=== PATIENT | male | born 1960 | race African-American/Black ===

== ENCOUNTER 2016-07-12 10:42 | Inpatient (IN) | payer MEDICAID ==
[~2016-07-12] VITALS: Ht 185.4 cm; Wt 111.7 kg
[2016-07-12] VITALS (7 sets, daily range): BP systolic 118–136; BP diastolic 54–79
[2016-07-12] MEDS ORDERED: HALOPERIDOL 5 MG TABLET PO PRN (12:30)
[2016-07-12] MEDS ORDERED: ZOLPIDEM TARTRATE 10 MG TABLET PO PRN (12:30)
[2016-07-12] MEDS ORDERED: LORazepam 2 MG TABLET PO PRN ×2 (12:30→19:15)
[2016-07-12 12:59] LABS: BASOPHILS % (AUTO) 0.3 % (0.0-2.0); EOSINOPHILS % (AUTO) 4.9 % (1.0-6.0); HEMATOCRIT 37.5 % (41-53); HEMOGLOBIN 12.4 g/dL (13.5-17.5); LYMPHOCYTES # (AUTO) 0.8 K/uL (1.0-4.8); LYMPHOCYTES % (AUTO) 19.3 % (22.0-44.0); MEAN CORPUSCULAR HEMOGLOBIN 31.6 pg (26.0-34.0); MEAN CORPUSCULAR HGB CONC 32.9 G/dL (31.0-37.0); MEAN CORPUSCULAR VOLUME 96 fL (80-100); MONOCYTES # (AUTO) 0.4 K/uL (0.1-1.0); MONOCYTES % (AUTO) 8.1 % (2.0-9.0); NEUTROPHILS # (AUTO) 2.9 K/uL (1.8-7.7); NEUTROPHILS % (AUTO) 67.4 % (40.0-70.0); PLATELET COUNT (AUTO) 128 K/uL (150-450); RED BLOOD CELL COUNT(AUTO) 3.91 MIL/uL (4.50-5.90); RED CELL DISTRIBUTION WIDTH 13.6 % (11.5-14.5); WHITE BLOOD COUNT (AUTO) 4.3 K/uL (4.5-11.0)
[2016-07-12 13:19] LABS: ANION GAP 7 mmol/L (8-16); CALCIUM, TOTAL 8.2 mg/dL (8.8-10.5); CARBON DIOXIDE 30 mmol/L (22-29); CHLORIDE 103 mmol/L (98-107); CREATININE 0.78 mg/dL (0.60-1.30); GLOMERULAR FILTR. RATE CALC > 60 mL/min (>60); POTASSIUM 3.5 mmol/L (3.5-5.1); SODIUM SERUM 140 mmol/L (136-145); UREA NITROGEN, BLOOD 11 mg/dL (7-18)
[2016-07-12 13:24] LABS: ALANINE AMINOTRANSFERASE 63 U/L (12-78); ALBUMIN 3.1 g/dL (3.4-5.0); ASPARTATE AMINOTRANSFERASE 107 U/L (15-37); BILIRUBIN,TOTAL 0.8 mg/dL (0.1-1.0); TOTAL PROTEIN, SERUM 6.8 g/dL (6.4-8.2)
[2016-07-12] MEDS ORDERED: INFLUENZA VIRUS VACCINE QVS 2016-17 (3YR+)/PF 60 MCG/0.5 ML SYRINGE IM ONE (13:45)
[2016-07-12] MEDS ORDERED: ASPIRIN 81 MG CHEWABLE TABLET PO ONE (15:15)
[2016-07-12] MEDS ORDERED: CYANOCOBALAMIN 1,000 MCG/ML VIAL IM ONE (19:15)
[2016-07-12] MEDS ORDERED: HydrOXYzine PAMOATE 50 MG CAPSULE PO PRN (19:15)
[2016-07-12] MEDS ORDERED: GuaiFENesin/D-METHORPHAN [SUGAR-FREE] 200-20MG/10 ML SYRUP UDCUP PO PRN (19:15)
[2016-07-12] MEDS ORDERED: LOPERAMIDE HCL 2 MG CAPSULE PO PRN (19:15)
[2016-07-12] MEDS: THIAMINE HCL 100 MG TABLET PO SCH (20:32)
[2016-07-12] MEDS: MULTIVITAMINS WITH MINERALS, THERAPEUTIC TABLET PO SCH (20:32)
[2016-07-12] MEDS: FOLIC ACID 1 MG TABLET PO SCH (20:35)
[2016-07-12] MEDS ORDERED: ACETAMINOPHEN 325 MG TABLET PO PRN (22:00)
[2016-07-13] VITALS (8 sets, daily range): BP systolic 107–141; BP diastolic 67–85
[2016-07-13] MEDS ORDERED: LORazepam 2 MG TABLET PO PRN (07:00)
[2016-07-13] MEDS: MULTIVITAMINS WITH MINERALS, THERAPEUTIC TABLET PO SCH (08:30)
[2016-07-13] MEDS: MAGNESIUM OXIDE 400 MG TABLET PO SCH (08:30)
[2016-07-13] MEDS: FOLIC ACID 1 MG TABLET PO SCH (08:30)
[2016-07-13] MEDS: ASPIRIN 81 MG CHEWABLE TABLET PO SCH (08:30)
[2016-07-13] MEDS: RisperiDONE 0.5 MG TABLET PO SCH ×2 (08:30→16:10)
[2016-07-13] MEDS: THIAMINE HCL 100 MG TABLET PO SCH ×2 (08:30→16:10)
[2016-07-13] MEDS: LORazepam 2 MG TABLET PO SCH ×4 (08:30→20:37)
[2016-07-13 09:41] LABS: INR 1.1 (0.9-1.1); PROTHROMBIN TIME 11.4 SEC (9.4-11.6)
[2016-07-13] MEDS ORDERED: POTASSIUM CHLORIDE 20 MEQ ER TABLET PO ONE (10:45)
[2016-07-13] MEDS: HYDROCHLOROTHIAZIDE 25 MG TABLET PO SCH (12:09)
[2016-07-13 14:37] LABS: HEMOGLOBIN A1C 5.5 % (4.5-6.2)
[2016-07-13 14:39] LABS: CHOL/HDL RATIO 1.3 (4.2-7.3)
[2016-07-14 00:04] VITALS: BP 103/60
[2016-07-14 03:00] VITALS: BP 135/77
[2016-07-14 05:42] VITALS: BP 133/71
[2016-07-14 08:04] VITALS: BP 133/85
[2016-07-14 08:05] VITALS: BP 133/85
[2016-07-14] MEDS: FOLIC ACID 1 MG TABLET PO SCH (08:24)
[2016-07-14] MEDS: THIAMINE HCL 100 MG TABLET PO SCH ×2 (08:24→16:47)
[2016-07-14] MEDS: MULTIVITAMINS WITH MINERALS, THERAPEUTIC TABLET PO SCH (08:24)
[2016-07-14] MEDS: MAGNESIUM OXIDE 400 MG TABLET PO SCH (08:24)
[2016-07-14] MEDS: RisperiDONE 0.5 MG TABLET PO SCH ×2 (08:24→16:47)
[2016-07-14] MEDS: LORazepam 2 MG TABLET PO SCH ×4 (08:24→20:36)
[2016-07-14] MEDS: HYDROCHLOROTHIAZIDE 25 MG TABLET PO SCH (08:24)
[2016-07-14] MEDS: ASPIRIN 81 MG CHEWABLE TABLET PO SCH (08:25)
[2016-07-14 16:00] VITALS: BP 138/91
[2016-07-15 00:10] VITALS: BP 117/62
[2016-07-15] MEDS ORDERED: LORazepam 1 MG TABLET PO PRN (07:00)
[2016-07-15 08:34] VITALS: BP 145/88
[2016-07-15] MEDS: THIAMINE HCL 100 MG TABLET PO SCH ×2 (08:34→16:46)
[2016-07-15] MEDS: HYDROCHLOROTHIAZIDE 25 MG TABLET PO SCH (08:34)
[2016-07-15] MEDS: RisperiDONE 0.5 MG TABLET PO SCH ×2 (08:34→16:46)
[2016-07-15] MEDS: FOLIC ACID 1 MG TABLET PO SCH (08:35)
[2016-07-15] MEDS: ASPIRIN 81 MG CHEWABLE TABLET PO SCH (08:35)
[2016-07-15] MEDS: LORazepam 1 MG TABLET PO SCH ×4 (08:35→21:24)
[2016-07-15] MEDS: MULTIVITAMINS WITH MINERALS, THERAPEUTIC TABLET PO SCH (08:35)
[2016-07-15] MEDS: MAGNESIUM OXIDE 400 MG TABLET PO SCH (08:35)
[2016-07-15 08:36] VITALS: BP 145/88
[2016-07-15 16:17] VITALS: BP 142/89
[2016-07-15 19:49] VITALS: BP 138/84
[2016-07-15 19:50] VITALS: BP 138/84
[2016-07-16 01:07] VITALS: BP 113/71
[2016-07-16] MEDS ORDERED: LORazepam 1 MG TABLET PO PRN (07:00)
[2016-07-16] MEDS: ASPIRIN 81 MG CHEWABLE TABLET PO SCH (08:31)
[2016-07-16] MEDS: FOLIC ACID 1 MG TABLET PO SCH (08:31)
[2016-07-16] MEDS: MAGNESIUM OXIDE 400 MG TABLET PO SCH (08:31)
[2016-07-16] MEDS: HYDROCHLOROTHIAZIDE 25 MG TABLET PO SCH (08:31)
[2016-07-16] MEDS: RisperiDONE 0.5 MG TABLET PO SCH ×2 (08:32→16:12)
[2016-07-16] MEDS: THIAMINE HCL 100 MG TABLET PO SCH ×2 (08:33→16:12)
[2016-07-16] MEDS: MULTIVITAMINS WITH MINERALS, THERAPEUTIC TABLET PO SCH (08:33)
[2016-07-16 09:00] VITALS: BP 133/83
[2016-07-16 10:58] VITALS: BP 133/83
[2016-07-16 16:00] VITALS: BP 131/79
[2016-07-16 16:09] VITALS: BP 131/79
[2016-07-17 00:04] VITALS: BP 105/62
[2016-07-17] MEDS: ASPIRIN 81 MG CHEWABLE TABLET PO SCH (08:51)
[2016-07-17] MEDS: RisperiDONE 0.5 MG TABLET PO SCH (08:51)
[2016-07-17] MEDS: HYDROCHLOROTHIAZIDE 25 MG TABLET PO SCH (08:51)
[2016-07-17] MEDS: THIAMINE HCL 100 MG TABLET PO SCH (08:51)
[2016-07-17] MEDS: MAGNESIUM OXIDE 400 MG TABLET PO SCH (08:51)
[2016-07-17] MEDS: FOLIC ACID 1 MG TABLET PO SCH (08:51)
[2016-07-17] MEDS: MULTIVITAMINS WITH MINERALS, THERAPEUTIC TABLET PO SCH (08:51)
[2016-07-17 08:56] VITALS: BP 123/78
[2016-07-17] MEDS ORDERED: RISP.5 PO (13:56)
[2016-07-17] MEDS ORDERED: HYDR25TA PO (13:56)
[2016-07-17] MEDS ORDERED: ASPI81 PO (13:56)
== END 2016-07-17 15:20 | disposition home or self-care (01) | DRG 751 ==
LOC: EMS 12:29 → B2S 15:11
PROVIDERS: ADMIT Psychiatry & Neurology Child & Adolescent Psychiatry; ATTEND Psychiatry & Neurology Child & Adolescent Psychiatry
DX: F29 Unspecified psychosis not due to a substance or known physiological condition (principal); I82.509 Chronic embolism and thrombosis of unspecified deep veins of unspecified lower extremity; F79 Unspecified intellectual disabilities; F25.9 Schizoaffective disorder, unspecified; Z79.52 Long term (current) use of systemic steroids; Z72.89 Other problems related to lifestyle
CPT/HCPCS: 71020; 83036; 84132; 85379; 93971; 99285; G0480; J3420

== ENCOUNTER 2016-09-21 08:45 | Inpatient (IN) | payer MEDICAID ==
[~2016-09-21] VITALS: Ht 185.4 cm; Wt 110.4 kg
[~2016-09-21 08:45] MED LIST: ASPI81 PO; HYDR25TA PO; RISP.5 PO
[2016-09-21 10:24] VITALS: BP 132/82
[2016-09-21 18:30] VITALS: BP 138/82
[2016-09-21] MEDS ORDERED: PNEUMOCOCCAL VACCINE POLYVALENT 0.5 ML VIAL [PPSV23] IM ONE (20:15)
[2016-09-21] MEDS ORDERED: HALOPERIDOL 5 MG TABLET PO PRN (20:15)
[2016-09-21 23:21] LABS: APPEARANCE,URINE TURBID (CLEAR); GLUCOSE, URINE (UA) NEGATIVE (NEGATIVE); KETONES,URINE NEGATIVE (NEGATIVE); LEUKOCYTE ESTERASE ,URINE NEGATIVE (NEGATIVE); OCCULT BLOOD,URINE NEGATIVE (NEGATIVE); PH,URINE 5.5 (5.0-8.0); PROTEIN,URINE NEGATIVE (NEGATIVE)
[2016-09-21 23:30] LABS: ADD UA MICROSCOPIC NO
[2016-09-22 07:07] LABS: INR 1.1 (0.9-1.1); PROTHROMBIN TIME 11.6 SEC (9.4-11.6)
[2016-09-22 07:15] LABS: ALANINE AMINOTRANSFERASE 51 U/L (12-78); ALBUMIN 3.3 g/dL (3.4-5.0); ANION GAP 12 mmol/L (8-16); ASPARTATE AMINOTRANSFERASE 77 U/L (15-37); BILIRUBIN,TOTAL 2.5 mg/dL (0.1-1.0); CALCIUM, TOTAL 8.5 mg/dL (8.8-10.5); CARBON DIOXIDE 25 mmol/L (22-29); CHLORIDE 104 mmol/L (98-107); CHOL/HDL RATIO 1.4 (4.2-7.3); CREATININE 0.53 mg/dL (0.60-1.30); GLOMERULAR FILTR. RATE CALC > 60 mL/min (>60); POTASSIUM 4.4 mmol/L (3.5-5.1); SODIUM SERUM 141 mmol/L (136-145); THYROID STIMULATING HORMONE 1.42 uIU/mL (0.36-3.74); TOTAL PROTEIN, SERUM 7.1 g/dL (6.4-8.2); UREA NITROGEN, BLOOD 10 mg/dL (7-18)
[2016-09-22 07:40] LABS: BASOPHILS # (AUTO) 0.02 K/uL (0.00-0.20); BASOPHILS % (AUTO) 0.5 % (0.0-2.0); EOSINOPHILS # (AUTO) 0.07 K/uL (0.00-0.70); EOSINOPHILS % (AUTO) 2.04 % (1.0-6.0); HEMATOCRIT 40.6 % (41-53); HEMOGLOBIN 13.8 g/dL (13.5-17.5); LYMPHOCYTES # (AUTO) 0.6 K/uL (1.0-4.8); LYMPHOCYTES % (AUTO) 16.1 % (22.0-44.0); MEAN CORPUSCULAR HEMOGLOBIN 33.5 pg (26.0-34.0); MEAN CORPUSCULAR HGB CONC 33.9 G/dL (31.0-37.0); MEAN CORPUSCULAR VOLUME 99 fL (80-100); MONOCYTES # (AUTO) 0.3 K/uL (0.1-1.0); MONOCYTES % (AUTO) 7.3 % (2.0-9.0); NEUTROPHILS # (AUTO) 2.6 K/uL (1.8-7.7); NEUTROPHILS % (AUTO) 74.2 % (40.0-70.0); RED BLOOD CELL COUNT(AUTO) 4.11 MIL/uL (4.50-5.90); RED CELL DISTRIBUTION WIDTH 13.9 % (11.5-14.5)
[2016-09-22 07:43] LABS: WHITE BLOOD COUNT (AUTO) 5.6 K/uL (4.5-11.0)
[2016-09-22 08:54] LABS: PLATELET COUNT (AUTO) 95 K/uL (150-450)
[2016-09-22 14:26] VITALS: BP 158/81
[2016-09-22] MEDS: LITHIUM CARBONATE 300 MG CAPSULE PO SCH (18:03)
[2016-09-22] MEDS: WARFARIN SODIUM 3 MG TABLET PO SCH (18:03)
[2016-09-22] MEDS: RisperiDONE 0.5 MG TABLET PO SCH (18:04)
[2016-09-22 18:26] VITALS: BP 169/94
[2016-09-22] MEDS ORDERED: ACETAMINOPHEN 325 MG TABLET PO PRN (20:15)
[2016-09-22] MEDS ORDERED: CloNIDine HCL 0.1 MG TABLET PO PRN (20:15)
[2016-09-23 07:12] LABS: HEMOGLOBIN A1C 4.9 % (4.5-6.2)
[2016-09-23 07:15] LABS: CHOL/HDL RATIO 1.3 (4.2-7.3); THYROID STIMULATING HORMONE 2.3 uIU/mL (0.36-3.74)
[2016-09-23 07:29] LABS: INR 1.2 (0.9-1.1); PROTHROMBIN TIME 12.9 SEC (9.4-11.6)
[2016-09-23] MEDS: RisperiDONE 0.5 MG TABLET PO SCH ×2 (08:36→16:51)
[2016-09-23] MEDS: LITHIUM CARBONATE 300 MG CAPSULE PO SCH ×2 (08:36→16:51)
[2016-09-23] MEDS: AmLODIPine BESYLATE 5 MG TABLET PO SCH (08:36)
[2016-09-23 08:55] VITALS: BP 140/74
[2016-09-23] MEDS: WARFARIN SODIUM 3 MG TABLET PO SCH (16:51)
[2016-09-23 18:30] VITALS: BP 145/80
[2016-09-24 06:59] LABS: INR 1.2 (0.9-1.1); PROTHROMBIN TIME 12.5 SEC (9.4-11.6)
[2016-09-24 08:01] VITALS: BP 165/105
[2016-09-24] MEDS: AmLODIPine BESYLATE 5 MG TABLET PO SCH (09:41)
[2016-09-24] MEDS: RisperiDONE 0.5 MG TABLET PO SCH ×2 (09:41→17:13)
[2016-09-24] MEDS: LITHIUM CARBONATE 300 MG CAPSULE PO SCH ×2 (09:41→17:13)
[2016-09-24 13:16] VITALS: BP 148/82
[2016-09-24 16:45] VITALS: BP 132/87
[2016-09-24] MEDS: WARFARIN SODIUM 3 MG TABLET PO SCH (17:13)
[2016-09-25 06:36] LABS: INR 1.2 (0.9-1.1); PROTHROMBIN TIME 12.3 SEC (9.4-11.6)
[2016-09-25 08:04] VITALS: BP 153/92
[2016-09-25] MEDS: AmLODIPine BESYLATE 5 MG TABLET PO SCH (08:04)
[2016-09-25] MEDS: RisperiDONE 0.5 MG TABLET PO SCH ×2 (08:04→16:47)
[2016-09-25] MEDS: LITHIUM CARBONATE 300 MG CAPSULE PO SCH ×2 (08:04→16:47)
[2016-09-25] MEDS: WARFARIN SODIUM 3 MG TABLET PO SCH (16:47)
[2016-09-25 18:45] VITALS: BP 149/87
[2016-09-26 07:37] LABS: INR 1.1 (0.9-1.1); PROTHROMBIN TIME 11.7 SEC (9.4-11.6)
[2016-09-26] MEDS: LITHIUM CARBONATE 300 MG CAPSULE PO SCH ×2 (08:27→16:44)
[2016-09-26] MEDS: RisperiDONE 0.5 MG TABLET PO SCH ×2 (08:27→16:44)
[2016-09-26] MEDS: AmLODIPine BESYLATE 5 MG TABLET PO SCH (08:27)
[2016-09-26 08:41] VITALS: BP 162/89
[2016-09-26 10:55] VITALS: BP 150/76
[2016-09-26 16:41] VITALS: BP 142/78
[2016-09-26] MEDS: WARFARIN SODIUM 3 MG TABLET PO SCH (16:44)
[2016-09-27 06:28] LABS: INR 1.1 (0.9-1.1); PROTHROMBIN TIME 11.8 SEC (9.4-11.6)
[2016-09-27 08:00] VITALS: BP 145/90
[2016-09-27] MEDS: LITHIUM CARBONATE 300 MG CAPSULE PO SCH (09:14)
[2016-09-27] MEDS: AmLODIPine BESYLATE 5 MG TABLET PO SCH (09:14)
[2016-09-27] MEDS: RisperiDONE 0.5 MG TABLET PO SCH (09:14)
[2016-09-27] MEDS ORDERED: LITH300C3 PO (12:48)
[2016-09-27] MEDS ORDERED: RISP.5 PO (12:48)
[2016-09-27] MEDS ORDERED: WARF5 PO (12:50)
[2016-09-27] MEDS ORDERED: AMLO-511 PO (12:50)
[2016-09-27] MEDS ORDERED: WARFARIN SODIUM 5 MG TABLET PO SCH (17:00)
== END 2016-09-27 14:15 | disposition home or self-care (01) | DRG 750 ==
LOC: EMS 11:18 → UNDOADMIN 11:34 → B2S 11:34 → 3EI 18:00
PROVIDERS: ADMIT Psychiatry & Neurology Psychiatry; ATTEND Psychiatry & Neurology Psychiatry
PROC: HZ37ZZZ Individual Counseling for Substance Abuse Treatment, Motivational Enhancement (ICD-10-PCS; principal; 2016-09-22)
DX: F20.0 Paranoid schizophrenia (principal); I82.509 Chronic embolism and thrombosis of unspecified deep veins of unspecified lower extremity; I10 Essential (primary) hypertension; F79 Unspecified intellectual disabilities; F12.90 Cannabis use, unspecified, uncomplicated; Z86.718 Personal history of other venous thrombosis and embolism; Z79.01 Long term (current) use of anticoagulants; Z28.21 Immunization not carried out because of patient refusal; Z72.89 Other problems related to lifestyle; Z71.51 Drug abuse counseling and surveillance of drug abuser; Z79.899 Other long term (current) drug therapy
CPT/HCPCS: 83036; 84439; 84443; 93970; 99285

== ENCOUNTER 2016-09-21 12:24 | Emergency (ER) | payer MEDICAID ==
[~2016-09-21] VITALS: Ht 185.4 cm; Wt 86.4 kg
[2016-09-21 13:17] LABS: BASOPHILS % (AUTO) 0.9 % (0.0-2.0); EOSINOPHILS % (AUTO) 4.6 % (1.0-6.0); HEMATOCRIT 43.8 % (41-53); HEMOGLOBIN 14.2 g/dL (13.5-17.5); LYMPHOCYTES # (AUTO) 0.8 K/uL (1.0-4.8); LYMPHOCYTES % (AUTO) 23.5 % (22.0-44.0); MEAN CORPUSCULAR HEMOGLOBIN 32.4 pg (26.0-34.0); MEAN CORPUSCULAR HGB CONC 32.5 G/dL (31.0-37.0); MEAN CORPUSCULAR VOLUME 100 fL (80-100); MONOCYTES # (AUTO) 0.3 K/uL (0.1-1.0); MONOCYTES % (AUTO) 10.5 % (2.0-9.0); NEUTROPHILS % (AUTO) 60.5 % (40.0-70.0); PLATELET COUNT (AUTO) 103 K/uL (150-450); RED CELL DISTRIBUTION WIDTH 14.2 % (11.5-14.5); WHITE BLOOD COUNT (AUTO) 3.3 K/uL (4.5-11.0)
[2016-09-21 13:28] LABS: ANION GAP 9 mmol/L (8-16); CALCIUM, TOTAL 8.4 mg/dL (8.8-10.5); CARBON DIOXIDE 29 mmol/L (22-29); CHLORIDE 104 mmol/L (98-107); CREATININE 0.71 mg/dL (0.60-1.30); GLOMERULAR FILTR. RATE CALC > 60 mL/min (>60); POTASSIUM 3.8 mmol/L (3.5-5.1); SODIUM SERUM 142 mmol/L (136-145); UREA NITROGEN, BLOOD 7 mg/dL (7-18)
[2016-09-21 13:34] LABS: ALANINE AMINOTRANSFERASE 54 U/L (12-78); ALBUMIN 3.7 g/dL (3.4-5.0); ASPARTATE AMINOTRANSFERASE 78 U/L (15-37); BILIRUBIN,TOTAL 1.1 mg/dL (0.1-1.0); TOTAL PROTEIN, SERUM 8.1 g/dL (6.4-8.2)
[2016-09-21 14:00] LABS: PROTHROMBIN TIME 10.7 SEC (9.4-11.6)
[2016-09-21] MEDS ORDERED: WARFARIN SODIUM 5 MG TABLET PO ONE (15:30)
[2016-09-21] MEDS ORDERED: ENOXAPARIN SODIUM 100 MG/ML PF SYRINGE SQ SCH (16:00)
[2016-09-21 17:35] VITALS: BP 115/80
== END 2016-09-21 18:09 | disposition home or self-care (01) ==
LOC: EMS 12:27
DX: F10.229 Alcohol dependence with intoxication, unspecified (principal); I82.402 Acute embolism and thrombosis of unspecified deep veins of left lower extremity; Y90.7 Blood alcohol level of 200-239 mg/100 ml
CPT/HCPCS: 36415; 80053; 80307; 85025; 85610; 93970; 96372; 99285; G0480; J1650

== ENCOUNTER 2016-10-23 16:02 | Emergency (ER) | payer MEDICAID, OTHER ==
[~2016-10-23] VITALS: Ht 185.4 cm; Wt 106.8 kg
[~2016-10-23 16:02] MED LIST changes: +AMLO-511 PO; -ASPI81 PO; -HYDR25TA PO; +LITH300C3 PO; +WARF5 PO
[2016-10-23 17:43] LABS: BASOPHILS % (AUTO) 0.4 % (0.0-2.0); EOSINOPHILS % (AUTO) 7.3 % (1.0-6.0); HEMOGLOBIN 12.6 g/dL (13.5-17.5); LYMPHOCYTES # (AUTO) 1.3 K/uL (1.0-4.8); LYMPHOCYTES % (AUTO) 31.9 % (22.0-44.0); MEAN CORPUSCULAR HEMOGLOBIN 31.7 pg (26.0-34.0); MEAN CORPUSCULAR HGB CONC 32.4 G/dL (31.0-37.0); MEAN CORPUSCULAR VOLUME 98 fL (80-100); MONOCYTES # (AUTO) 0.4 K/uL (0.1-1.0); MONOCYTES % (AUTO) 10.6 % (2.0-9.0); NEUTROPHILS # (AUTO) 2.1 K/uL (1.8-7.7); NEUTROPHILS % (AUTO) 49.8 % (40.0-70.0); PLATELET COUNT (AUTO) 131 K/uL (150-450); RED BLOOD CELL COUNT(AUTO) 3.97 MIL/uL (4.50-5.90); RED CELL DISTRIBUTION WIDTH 13.4 % (11.5-14.5); WHITE BLOOD COUNT (AUTO) 4.2 K/uL (4.5-11.0)
[2016-10-23 17:48] LABS: ANION GAP 6 mmol/L (8-16); CALCIUM, TOTAL 8.2 mg/dL (8.8-10.5); CARBON DIOXIDE 29 mmol/L (22-29); CHLORIDE 105 mmol/L (98-107); CREATININE 0.82 mg/dL (0.60-1.30); GLOMERULAR FILTR. RATE CALC > 60 mL/min (>60); POTASSIUM 3.7 mmol/L (3.5-5.1); SODIUM SERUM 140 mmol/L (136-145); UREA NITROGEN, BLOOD 11 mg/dL (7-18)
[2016-10-23 17:53] LABS: ALANINE AMINOTRANSFERASE 55 U/L (12-78); ALBUMIN 3.5 g/dL (3.4-5.0); ASPARTATE AMINOTRANSFERASE 59 U/L (15-37); TOTAL PROTEIN, SERUM 7.1 g/dL (6.4-8.2)
[2016-10-23 19:14] VITALS: BP 134/80
[2016-10-23] MEDS ORDERED: ChlordiazePOXIDE HCL 25 MG CAPSULE PO ONE (19:45)
== END 2016-10-23 19:46 | disposition home or self-care (01) ==
LOC: EMS 16:08
DX: F10.229 Alcohol dependence with intoxication, unspecified (principal); M79.89 Other specified soft tissue disorders; G89.29 Other chronic pain; Z02.89 Encounter for other administrative examinations; Y90.8 Blood alcohol level of 240 mg/100 ml or more
CPT/HCPCS: 36415; 80053; 85025; 99284; G0480

== ENCOUNTER 2018-10-23 10:25 | Inpatient (IN) | payer MEDICAID ==
[~2018-10-23] VITALS: Ht 182.9 cm; Wt 114.8 kg
[2018-10-23 09:32] VITALS: BP 150/81
[~2018-10-23 10:25] MED LIST changes: -AMLO-511 PO; +AMLO10TA7 PO; +HALOPERIDOL 5 MG TABLET PO PRN; +HYDR25TA PO; -LITH300C3 PO; +NALT50TA6 PO; +QUET200T PO; +QUET200T29 PO; -RISP.5 PO; +RIVA20TA PO; +WARF1 PO; -WARF5 PO; +ZOLPIDEM TARTRATE 10 MG TABLET PO PRN
[2018-10-23] MEDS ORDERED: RIVA10 PO (10:58)
[2018-10-23] MEDS ORDERED: APIXABAN 5 MG TABLET PO ONE (12:45)
[2018-10-23 17:15] VITALS: BP 128/76
[2018-10-23] MEDS: LORazepam 2 MG TABLET PO PRN (18:12)
[2018-10-23] MEDS ORDERED: MAGNESIUM HYDROXIDE SUSPENSION 30 ML UDCUP PO PRN (18:30)
[2018-10-23] MEDS ORDERED: CloNIDine HCL 0.1 MG TABLET PO PRN (18:30)
[2018-10-23] MEDS ORDERED: ONDANSETRON HCL 4 MG TABLET PO PRN (18:30)
[2018-10-23] MEDS ORDERED: IBUPROFEN 400 MG TABLET PO PRN (18:30)
[2018-10-23] MEDS ORDERED: DOCUSATE SODIUM 100 MG CAPSULE PO PRN (18:30)
[2018-10-23] MEDS ORDERED: ALBUTEROL SULFATE HFA 90 MCG/PUFF 8 GM INHALER IH PRN (18:30)
[2018-10-23] MEDS ORDERED: GuaiFENesin/D-METHORPHAN [SUGAR-FREE] 200-20MG/10 ML SYRUP UDCUP PO PRN (18:30)
[2018-10-23] MEDS ORDERED: NICOTINE 14 MG/24 HOUR PATCH TD PRN (18:30)
[2018-10-23] MEDS ORDERED: MAG HYDROX/AL HYDROX/SIMETH ES 30 ML SUSPENSION UDCUP PO PRN (18:30)
[2018-10-23] MEDS ORDERED: LOPERAMIDE HCL 2 MG CAPSULE PO PRN (18:30)
[2018-10-23] MEDS ORDERED: ACETAMINOPHEN 325 MG TABLET PO PRN (18:30)
[2018-10-24 03:59] VITALS: BP 119/72
[2018-10-24 07:16] LABS: BASOPHILS % (AUTO) 0.8 % (0.0-2.0); EOSINOPHILS % (AUTO) 2.5 % (1.0-6.0); HEMATOCRIT 34.8 % (41-53); HEMOGLOBIN 11.4 g/dL (13.5-17.5); LYMPHOCYTES # (AUTO) 0.9 K/uL (1.0-4.8); LYMPHOCYTES % (AUTO) 19.8 % (22.0-44.0); MEAN CORPUSCULAR HEMOGLOBIN 30.9 pg (26.0-34.0); MEAN CORPUSCULAR HGB CONC 32.8 G/dL (31.0-37.0); MEAN CORPUSCULAR VOLUME 94 fL (80-100); MONOCYTES # (AUTO) 0.5 K/uL (0.1-1.0); MONOCYTES % (AUTO) 11.4 % (2.0-9.0); NEUTROPHILS % (AUTO) 65.5 % (40.0-70.0); PLATELET COUNT (AUTO) 214 K/uL (150-450); RED CELL DISTRIBUTION WIDTH 12.8 % (11.5-14.5)
[2018-10-24 07:26] LABS: HEMOGLOBIN A1C 5.7 % (4.5-6.2)
[2018-10-24 07:49] LABS: ALANINE AMINOTRANSFERASE 10 U/L (12-78); ALBUMIN 2.3 g/dL (3.4-5.0); ALKALINE PHOSPHATASE 38 U/L (46-116); ANION GAP 7 mmol/L (8-16); ASPARTATE AMINOTRANSFERASE 21 U/L (15-37); BILIRUBIN,TOTAL 1.2 mg/dL (0.1-1.0); CALCIUM, TOTAL 8.4 mg/dL (8.8-10.5); CARBON DIOXIDE 28 mmol/L (22-29); CHLORIDE 107 mmol/L (98-107); CHOL/HDL RATIO 1.8 (4.2-7.3); CHOLESTEROL 90 mg/dL (131-200); CREATININE 0.72 mg/dL (0.60-1.30); GLOMERULAR FILTR. RATE CALC > 60 mL/min (>60); GLUCOSE,RANDOM 108 mg/dL (70-110); HDL CHOLESTEROL 50 mg/dL (40-60); LDL CHOL (CALC.) 33 mg/dL (0-130); POTASSIUM 3.7 mmol/L (3.5-5.1); SODIUM SERUM 142 mmol/L (136-145); THYROID STIMULATING HORMONE 1.01 uIU/mL (0.36-3.74); TOTAL PROTEIN, SERUM 6.7 g/dL (6.4-8.2); TRIGLYCERIDES 35 mg/dL (15-150); UREA NITROGEN, BLOOD 12 mg/dL (7-18)
[2018-10-24 08:14] VITALS: BP 115/74
[2018-10-24] MEDS: HYDROCHLOROTHIAZIDE 25 MG TABLET PO SCH (08:45)
[2018-10-24] MEDS: APIXABAN 5 MG TABLET PO SCH ×2 (08:45→16:25)
[2018-10-24] MEDS: AmLODIPine BESYLATE 10 MG TABLET PO SCH (08:45)
[2018-10-24] MEDS: LORazepam 2 MG TABLET PO PRN (14:40)
[2018-10-24 16:09] VITALS: BP 146/65
[2018-10-24] MEDS: QUEtiapine FUMARATE 200 MG TABLET PO SCH (20:11)
[2018-10-24] MEDS ORDERED: QUEtiapine FUMARATE 200 MG TABLET PO SCH (21:00)
[2018-10-25 07:25] VITALS: BP 138/64
[2018-10-25 08:19] VITALS: BP 126/74
[2018-10-25] MEDS: APIXABAN 5 MG TABLET PO SCH ×2 (08:46→16:18)
[2018-10-25] MEDS: AmLODIPine BESYLATE 10 MG TABLET PO SCH (08:46)
[2018-10-25] MEDS: HYDROCHLOROTHIAZIDE 25 MG TABLET PO SCH (08:46)
[2018-10-25 16:17] VITALS: BP 119/72
[2018-10-25] MEDS: CEPHALEXIN MONOHYDRATE 500 MG CAPSULE PO SCH (16:17)
[2018-10-25] MEDS: SULFAMETHOX/TRIMETH DS 800-160 MG/TABLET PO SCH (17:01)
[2018-10-25] MEDS: QUEtiapine FUMARATE 200 MG TABLET PO SCH (20:17)
[2018-10-26 00:17] VITALS: BP 107/62
[2018-10-26] MEDS: CEPHALEXIN MONOHYDRATE 500 MG CAPSULE PO SCH ×3 (00:22→16:39)
[2018-10-26 08:15] VITALS: BP 117/62
[2018-10-26] MEDS: SULFAMETHOX/TRIMETH DS 800-160 MG/TABLET PO SCH ×2 (08:54→16:39)
[2018-10-26] MEDS: HYDROCHLOROTHIAZIDE 25 MG TABLET PO SCH (08:54)
[2018-10-26] MEDS: AmLODIPine BESYLATE 10 MG TABLET PO SCH (08:54)
[2018-10-26] MEDS: APIXABAN 5 MG TABLET PO SCH ×2 (08:55→16:39)
[2018-10-26 16:18] VITALS: BP 135/75
[2018-10-26] MEDS: QUEtiapine FUMARATE 200 MG TABLET PO SCH (20:15)
[2018-10-27] MEDS: CEPHALEXIN MONOHYDRATE 500 MG CAPSULE PO SCH ×3 (00:11→16:50)
[2018-10-27 03:57] VITALS: BP 126/78
[2018-10-27 08:49] VITALS: BP 117/78
[2018-10-27] MEDS: HYDROCHLOROTHIAZIDE 25 MG TABLET PO SCH (08:52)
[2018-10-27] MEDS: SULFAMETHOX/TRIMETH DS 800-160 MG/TABLET PO SCH ×2 (08:52→16:50)
[2018-10-27] MEDS: AmLODIPine BESYLATE 10 MG TABLET PO SCH (08:52)
[2018-10-27] MEDS: APIXABAN 5 MG TABLET PO SCH ×2 (08:52→16:50)
[2018-10-27 16:09] VITALS: BP 132/79
[2018-10-27] MEDS: QUEtiapine FUMARATE 200 MG TABLET PO SCH (20:40)
[2018-10-28] MEDS: CEPHALEXIN MONOHYDRATE 500 MG CAPSULE PO SCH ×3 (00:10→16:18)
[2018-10-28 05:28] VITALS: BP 128/78
[2018-10-28 08:22] VITALS: BP 104/69
[2018-10-28] MEDS: AmLODIPine BESYLATE 10 MG TABLET PO SCH (08:31)
[2018-10-28] MEDS: SULFAMETHOX/TRIMETH DS 800-160 MG/TABLET PO SCH ×2 (08:31→16:18)
[2018-10-28] MEDS: APIXABAN 5 MG TABLET PO SCH ×2 (08:31→16:18)
[2018-10-28] MEDS: HYDROCHLOROTHIAZIDE 25 MG TABLET PO SCH (08:32)
[2018-10-28] MEDS: PETROLATUM,WHITE 28 GM JELLY TP PRN (08:35)
[2018-10-28] MEDS: BACITRACIN 28.4 GM OINTMENT TP SCH ×2 (09:41→16:19)
[2018-10-28 16:08] VITALS: BP 101/61
[2018-10-28] MEDS: QUEtiapine FUMARATE 200 MG TABLET PO SCH (20:14)
[2018-10-29] MEDS: CEPHALEXIN MONOHYDRATE 500 MG CAPSULE PO SCH ×3 (00:44→16:29)
[2018-10-29 06:04] VITALS: BP 110/68
[2018-10-29 08:33] VITALS: BP 116/73
[2018-10-29] MEDS: AmLODIPine BESYLATE 10 MG TABLET PO SCH (08:45)
[2018-10-29] MEDS: APIXABAN 5 MG TABLET PO SCH ×2 (08:45→16:29)
[2018-10-29] MEDS: HYDROCHLOROTHIAZIDE 25 MG TABLET PO SCH (08:45)
[2018-10-29] MEDS: SULFAMETHOX/TRIMETH DS 800-160 MG/TABLET PO SCH ×2 (08:45→16:29)
[2018-10-29] MEDS: BACITRACIN 28.4 GM OINTMENT TP SCH ×2 (08:46→17:09)
[2018-10-29] MEDS: FUROSEMIDE 20 MG TABLET PO SCH (15:06)
[2018-10-29 16:10] VITALS: BP 117/69
[2018-10-29] MEDS: QUEtiapine FUMARATE 200 MG TABLET PO SCH (20:49)
[2018-10-30] MEDS: CEPHALEXIN MONOHYDRATE 500 MG CAPSULE PO SCH ×4 (00:03→23:32)
[2018-10-30 08:16] VITALS: BP 119/70
[2018-10-30] MEDS: BACITRACIN 28.4 GM OINTMENT TP SCH ×2 (09:00→21:01)
[2018-10-30] MEDS: HYDROCHLOROTHIAZIDE 25 MG TABLET PO SCH (09:53)
[2018-10-30] MEDS: APIXABAN 5 MG TABLET PO SCH ×2 (09:53→16:38)
[2018-10-30] MEDS: AmLODIPine BESYLATE 10 MG TABLET PO SCH (09:53)
[2018-10-30] MEDS: SULFAMETHOX/TRIMETH DS 800-160 MG/TABLET PO SCH ×2 (09:53→16:38)
[2018-10-30 16:31] VITALS: BP 118/63
[2018-10-30] MEDS: QUEtiapine FUMARATE 200 MG TABLET PO SCH (20:09)
[2018-10-31 08:05] VITALS: BP 114/68
[2018-10-31] MEDS: FUROSEMIDE 20 MG TABLET PO SCH (08:49)
[2018-10-31] MEDS: AmLODIPine BESYLATE 10 MG TABLET PO SCH (08:49)
[2018-10-31] MEDS: CEPHALEXIN MONOHYDRATE 500 MG CAPSULE PO SCH ×2 (08:49→17:20)
[2018-10-31] MEDS: SULFAMETHOX/TRIMETH DS 800-160 MG/TABLET PO SCH ×2 (08:49→17:20)
[2018-10-31] MEDS: HYDROCHLOROTHIAZIDE 25 MG TABLET PO SCH (08:49)
[2018-10-31] MEDS: APIXABAN 5 MG TABLET PO SCH ×2 (08:50→17:20)
[2018-10-31] MEDS: BACITRACIN 28.4 GM OINTMENT TP SCH ×2 (13:30→17:20)
[2018-10-31 21:02] VITALS: BP 114/74
[2018-10-31] MEDS: QUEtiapine FUMARATE 200 MG TABLET PO SCH (21:22)
[2018-11-01] MEDS: CEPHALEXIN MONOHYDRATE 500 MG CAPSULE PO SCH ×2 (01:17→10:11)
[2018-11-01 09:48] VITALS: BP 102/69
[2018-11-01] MEDS: MULTIVITAMINS WITH MINERALS, THERAPEUTIC TABLET PO SCH (10:10)
[2018-11-01] MEDS: AmLODIPine BESYLATE 10 MG TABLET PO SCH (10:10)
[2018-11-01] MEDS: HYDROCHLOROTHIAZIDE 25 MG TABLET PO SCH (10:10)
[2018-11-01] MEDS: APIXABAN 5 MG TABLET PO SCH ×2 (10:10→16:54)
[2018-11-01] MEDS: SULFAMETHOX/TRIMETH DS 800-160 MG/TABLET PO SCH (10:10)
[2018-11-01] MEDS: BACITRACIN 28.4 GM OINTMENT TP SCH ×2 (10:11→16:54)
[2018-11-01] MEDS: QUEtiapine FUMARATE 200 MG TABLET PO SCH (20:43)
[2018-11-01 21:34] VITALS: BP 120/70
[2018-11-02 08:00] VITALS: BP 133/87
[2018-11-02] MEDS: HYDROCHLOROTHIAZIDE 25 MG TABLET PO SCH (09:35)
[2018-11-02] MEDS: APIXABAN 5 MG TABLET PO SCH ×2 (09:36→16:54)
[2018-11-02] MEDS: MULTIVITAMINS WITH MINERALS, THERAPEUTIC TABLET PO SCH (09:36)
[2018-11-02] MEDS: AmLODIPine BESYLATE 10 MG TABLET PO SCH (09:36)
[2018-11-02] MEDS: FUROSEMIDE 20 MG TABLET PO SCH (09:37)
[2018-11-02] MEDS: BACITRACIN 28.4 GM OINTMENT TP SCH ×2 (09:46→17:54)
[2018-11-02 17:32] VITALS: BP 112/71
[2018-11-02] MEDS: QUEtiapine FUMARATE 200 MG TABLET PO SCH (20:18)
[2018-11-03] MEDS: AmLODIPine BESYLATE 10 MG TABLET PO SCH (08:54)
[2018-11-03] MEDS: MULTIVITAMINS WITH MINERALS, THERAPEUTIC TABLET PO SCH (08:54)
[2018-11-03] MEDS: HYDROCHLOROTHIAZIDE 25 MG TABLET PO SCH (08:54)
[2018-11-03] MEDS: BACITRACIN 28.4 GM OINTMENT TP SCH ×2 (08:55→16:42)
[2018-11-03] MEDS: APIXABAN 5 MG TABLET PO SCH ×2 (08:55→16:41)
[2018-11-03 09:06] VITALS: BP 139/82
[2018-11-03 16:30] VITALS: BP 124/76
[2018-11-03] MEDS: QUEtiapine FUMARATE 200 MG TABLET PO SCH (20:31)
[2018-11-04 08:56] VITALS: BP 127/89
[2018-11-04] MEDS: HYDROCHLOROTHIAZIDE 25 MG TABLET PO SCH (09:58)
[2018-11-04] MEDS: AmLODIPine BESYLATE 10 MG TABLET PO SCH (09:58)
[2018-11-04] MEDS: MULTIVITAMINS WITH MINERALS, THERAPEUTIC TABLET PO SCH (09:58)
[2018-11-04] MEDS: APIXABAN 5 MG TABLET PO SCH ×2 (09:58→16:33)
[2018-11-04] MEDS: FUROSEMIDE 20 MG TABLET PO SCH (09:59)
[2018-11-04] MEDS: BACITRACIN 28.4 GM OINTMENT TP SCH ×2 (10:15→16:33)
[2018-11-04 16:44] VITALS: BP 121/72
[2018-11-04] MEDS: QUEtiapine FUMARATE 200 MG TABLET PO SCH (20:55)
[2018-11-05 08:14] VITALS: BP 110/72
[2018-11-05] MEDS: AmLODIPine BESYLATE 10 MG TABLET PO SCH (09:22)
[2018-11-05] MEDS: MULTIVITAMINS WITH MINERALS, THERAPEUTIC TABLET PO SCH (09:22)
[2018-11-05] MEDS: HYDROCHLOROTHIAZIDE 25 MG TABLET PO SCH (09:22)
[2018-11-05] MEDS: APIXABAN 5 MG TABLET PO SCH ×2 (09:22→16:34)
[2018-11-05] MEDS: BACITRACIN 28.4 GM OINTMENT TP SCH ×2 (13:08→16:34)
[2018-11-05 16:59] VITALS: BP 102/61
[2018-11-05] MEDS: QUEtiapine FUMARATE 200 MG TABLET PO SCH (20:55)
[2018-11-06] MEDS: AmLODIPine BESYLATE 10 MG TABLET PO SCH (08:16)
[2018-11-06] MEDS: MULTIVITAMINS WITH MINERALS, THERAPEUTIC TABLET PO SCH (08:16)
[2018-11-06] MEDS: APIXABAN 5 MG TABLET PO SCH ×2 (08:16→16:11)
[2018-11-06] MEDS: HYDROCHLOROTHIAZIDE 25 MG TABLET PO SCH (08:17)
[2018-11-06] MEDS: FUROSEMIDE 20 MG TABLET PO SCH (08:17)
[2018-11-06 08:49] VITALS: BP 115/80
[2018-11-06] MEDS: BACITRACIN 28.4 GM OINTMENT TP SCH ×2 (09:41→16:11)
[2018-11-06 17:46] VITALS: BP 124/64
[2018-11-06] MEDS: QUEtiapine FUMARATE 200 MG TABLET PO SCH (20:32)
[2018-11-07] MEDS: APIXABAN 5 MG TABLET PO SCH ×2 (09:38→16:27)
[2018-11-07] MEDS: AmLODIPine BESYLATE 10 MG TABLET PO SCH (09:38)
[2018-11-07] MEDS: MULTIVITAMINS WITH MINERALS, THERAPEUTIC TABLET PO SCH (09:38)
[2018-11-07] MEDS: HYDROCHLOROTHIAZIDE 25 MG TABLET PO SCH (09:39)
[2018-11-07] MEDS: BACITRACIN 28.4 GM OINTMENT TP SCH ×2 (09:39→16:26)
[2018-11-07 10:08] VITALS: BP 124/78
[2018-11-07 19:53] VITALS: BP 129/66
[2018-11-07] MEDS: QUEtiapine FUMARATE 200 MG TABLET PO SCH (20:01)
[2018-11-08] MEDS: MULTIVITAMINS WITH MINERALS, THERAPEUTIC TABLET PO SCH (08:31)
[2018-11-08] MEDS: APIXABAN 5 MG TABLET PO SCH ×2 (08:31→16:31)
[2018-11-08] MEDS: HYDROCHLOROTHIAZIDE 25 MG TABLET PO SCH (08:31)
[2018-11-08] MEDS: FUROSEMIDE 20 MG TABLET PO SCH (08:31)
[2018-11-08] MEDS: AmLODIPine BESYLATE 10 MG TABLET PO SCH (08:31)
[2018-11-08] MEDS: BACITRACIN 28.4 GM OINTMENT TP SCH ×2 (08:34→16:36)
[2018-11-08 08:49] VITALS: BP 144/80
[2018-11-08 16:12] VITALS: BP 90/52
[2018-11-08 16:37] VITALS: BP 109/66
[2018-11-08] MEDS: QUEtiapine FUMARATE 200 MG TABLET PO SCH (20:21)
[2018-11-09 08:00] VITALS: BP 106/70
[2018-11-09] MEDS: BACITRACIN 28.4 GM OINTMENT TP SCH ×2 (09:00→16:27)
[2018-11-09] MEDS: AmLODIPine BESYLATE 10 MG TABLET PO SCH (09:45)
[2018-11-09] MEDS: MULTIVITAMINS WITH MINERALS, THERAPEUTIC TABLET PO SCH (09:45)
[2018-11-09] MEDS: HYDROCHLOROTHIAZIDE 25 MG TABLET PO SCH (09:45)
[2018-11-09] MEDS: APIXABAN 5 MG TABLET PO SCH ×2 (09:45→16:26)
[2018-11-09 17:00] VITALS: BP 98/61
[2018-11-09] MEDS: QUEtiapine FUMARATE 200 MG TABLET PO SCH (20:07)
[2018-11-10] MEDS: HYDROCHLOROTHIAZIDE 25 MG TABLET PO SCH (08:40)
[2018-11-10] MEDS: APIXABAN 5 MG TABLET PO SCH ×2 (08:40→16:26)
[2018-11-10] MEDS: MULTIVITAMINS WITH MINERALS, THERAPEUTIC TABLET PO SCH (08:41)
[2018-11-10] MEDS: AmLODIPine BESYLATE 10 MG TABLET PO SCH (08:41)
[2018-11-10] MEDS: FUROSEMIDE 20 MG TABLET PO SCH (08:41)
[2018-11-10 09:52] VITALS: BP 123/76
[2018-11-10] MEDS: BACITRACIN 28.4 GM OINTMENT TP SCH ×2 (10:31→16:26)
[2018-11-10 17:15] VITALS: BP 132/77
[2018-11-10] MEDS: QUEtiapine FUMARATE 200 MG TABLET PO SCH (20:34)
[2018-11-11] MEDS: HYDROCHLOROTHIAZIDE 25 MG TABLET PO SCH (09:00)
[2018-11-11] MEDS: AmLODIPine BESYLATE 10 MG TABLET PO SCH (09:00)
[2018-11-11] MEDS: MULTIVITAMINS WITH MINERALS, THERAPEUTIC TABLET PO SCH (09:00)
[2018-11-11] MEDS: APIXABAN 5 MG TABLET PO SCH ×2 (09:00→16:30)
[2018-11-11 09:35] VITALS: BP 134/87
[2018-11-11] MEDS: BACITRACIN 28.4 GM OINTMENT TP SCH ×2 (12:40→16:32)
[2018-11-11 16:50] VITALS: BP 118/77
[2018-11-11] MEDS: QUEtiapine FUMARATE 200 MG TABLET PO SCH (20:07)
[2018-11-12 08:00] VITALS: BP 116/75
[2018-11-12] MEDS: FUROSEMIDE 20 MG TABLET PO SCH (09:39)
[2018-11-12] MEDS: MULTIVITAMINS WITH MINERALS, THERAPEUTIC TABLET PO SCH (09:39)
[2018-11-12] MEDS: APIXABAN 5 MG TABLET PO SCH ×2 (09:39→16:21)
[2018-11-12] MEDS: HYDROCHLOROTHIAZIDE 25 MG TABLET PO SCH (09:39)
[2018-11-12] MEDS: AmLODIPine BESYLATE 10 MG TABLET PO SCH (09:39)
[2018-11-12] MEDS: BACITRACIN 28.4 GM OINTMENT TP SCH ×2 (12:52→16:21)
[2018-11-12] MEDS: QUEtiapine FUMARATE 200 MG TABLET PO SCH (20:15)
[2018-11-12 20:30] VITALS: BP 123/80
[2018-11-13 08:00] VITALS: BP 117/68
[2018-11-13] MEDS: MULTIVITAMINS WITH MINERALS, THERAPEUTIC TABLET PO SCH (09:30)
[2018-11-13] MEDS: APIXABAN 5 MG TABLET PO SCH ×2 (09:30→16:06)
[2018-11-13] MEDS: AmLODIPine BESYLATE 10 MG TABLET PO SCH (09:30)
[2018-11-13] MEDS: HYDROCHLOROTHIAZIDE 25 MG TABLET PO SCH (09:30)
[2018-11-13] MEDS: BACITRACIN 28.4 GM OINTMENT TP SCH ×2 (10:33→17:00)
[2018-11-13 16:00] VITALS: BP 105/59
[2018-11-13] MEDS: QUEtiapine FUMARATE 200 MG TABLET PO SCH (20:18)
[2018-11-14 08:00] VITALS: BP 118/69
[2018-11-14] MEDS: MULTIVITAMINS WITH MINERALS, THERAPEUTIC TABLET PO SCH (08:25)
[2018-11-14] MEDS: AmLODIPine BESYLATE 10 MG TABLET PO SCH (08:25)
[2018-11-14] MEDS: HYDROCHLOROTHIAZIDE 25 MG TABLET PO SCH (08:25)
[2018-11-14] MEDS: FUROSEMIDE 20 MG TABLET PO SCH (08:26)
[2018-11-14] MEDS: APIXABAN 5 MG TABLET PO SCH ×2 (08:26→16:01)
[2018-11-14] MEDS: BACITRACIN 28.4 GM OINTMENT TP SCH ×2 (08:27→16:02)
[2018-11-14 16:10] VITALS: BP 116/70
[2018-11-14] MEDS: QUEtiapine FUMARATE 200 MG TABLET PO SCH (20:14)
[2018-11-15] MEDS: HYDROCHLOROTHIAZIDE 25 MG TABLET PO SCH (08:05)
[2018-11-15] MEDS: APIXABAN 5 MG TABLET PO SCH ×2 (08:05→16:31)
[2018-11-15] MEDS: MULTIVITAMINS WITH MINERALS, THERAPEUTIC TABLET PO SCH (08:05)
[2018-11-15] MEDS: AmLODIPine BESYLATE 10 MG TABLET PO SCH (08:06)
[2018-11-15] MEDS: BACITRACIN 28.4 GM OINTMENT TP SCH ×2 (08:08→16:32)
[2018-11-15 08:17] VITALS: BP 105/64
[2018-11-15] MEDS: QUEtiapine FUMARATE 200 MG TABLET PO SCH (20:28)
[2018-11-15 21:36] VITALS: BP 112/66
[2018-11-16 08:00] VITALS: BP 155/104
[2018-11-16] MEDS: FUROSEMIDE 20 MG TABLET PO SCH (08:59)
[2018-11-16] MEDS: APIXABAN 5 MG TABLET PO SCH ×2 (08:59→16:06)
[2018-11-16] MEDS: MULTIVITAMINS WITH MINERALS, THERAPEUTIC TABLET PO SCH (09:00)
[2018-11-16] MEDS: HYDROCHLOROTHIAZIDE 25 MG TABLET PO SCH (09:00)
[2018-11-16] MEDS: AmLODIPine BESYLATE 10 MG TABLET PO SCH (09:00)
[2018-11-16] MEDS: BACITRACIN 28.4 GM OINTMENT TP SCH ×2 (11:30→20:10)
[2018-11-16] MEDS: QUEtiapine FUMARATE 200 MG TABLET PO SCH (20:10)
[2018-11-17 08:15] VITALS: BP 117/77
[2018-11-17] MEDS: HYDROCHLOROTHIAZIDE 25 MG TABLET PO SCH (09:10)
[2018-11-17] MEDS: AmLODIPine BESYLATE 10 MG TABLET PO SCH (09:10)
[2018-11-17] MEDS: APIXABAN 5 MG TABLET PO SCH ×2 (09:10→16:06)
[2018-11-17] MEDS: MULTIVITAMINS WITH MINERALS, THERAPEUTIC TABLET PO SCH (09:10)
[2018-11-17] MEDS: BACITRACIN 28.4 GM OINTMENT TP SCH ×2 (10:36→16:06)
[2018-11-17] MEDS: PETROLATUM,WHITE 28 GM JELLY TP PRN (10:37)
[2018-11-17 16:25] VITALS: BP 143/75
[2018-11-17] MEDS: QUEtiapine FUMARATE 200 MG TABLET PO SCH (20:07)
[2018-11-18 08:00] VITALS: BP 124/91
[2018-11-18] MEDS: MULTIVITAMINS WITH MINERALS, THERAPEUTIC TABLET PO SCH (08:54)
[2018-11-18] MEDS: APIXABAN 5 MG TABLET PO SCH ×2 (08:55→16:12)
[2018-11-18] MEDS: AmLODIPine BESYLATE 10 MG TABLET PO SCH (08:55)
[2018-11-18] MEDS: HYDROCHLOROTHIAZIDE 25 MG TABLET PO SCH (08:55)
[2018-11-18] MEDS: FUROSEMIDE 20 MG TABLET PO SCH (08:55)
[2018-11-18] MEDS: BACITRACIN 28.4 GM OINTMENT TP SCH ×2 (10:23→16:36)
[2018-11-18 16:22] VITALS: BP 113/70
[2018-11-18] MEDS: QUEtiapine FUMARATE 200 MG TABLET PO SCH (20:09)
[2018-11-19 08:00] VITALS: BP 128/74
[2018-11-19] MEDS: MULTIVITAMINS WITH MINERALS, THERAPEUTIC TABLET PO SCH (09:00)
[2018-11-19] MEDS: AmLODIPine BESYLATE 10 MG TABLET PO SCH (09:00)
[2018-11-19] MEDS: HYDROCHLOROTHIAZIDE 25 MG TABLET PO SCH (09:00)
[2018-11-19] MEDS: APIXABAN 5 MG TABLET PO SCH ×2 (09:00→16:18)
[2018-11-19] MEDS: BACITRACIN 28.4 GM OINTMENT TP SCH ×2 (10:56→16:18)
[2018-11-19] MEDS: PETROLATUM,WHITE 28 GM JELLY TP PRN (10:56)
[2018-11-19 16:14] VITALS: BP 117/71
[2018-11-19] MEDS: QUEtiapine FUMARATE 200 MG TABLET PO SCH (20:21)
[2018-11-20 08:00] VITALS: BP 104/74
[2018-11-20] MEDS ORDERED: QUEtiapine FUMARATE 100 MG TABLET PO SCH (09:00)
[2018-11-20] MEDS: AmLODIPine BESYLATE 10 MG TABLET PO SCH (09:34)
[2018-11-20] MEDS: HYDROCHLOROTHIAZIDE 25 MG TABLET PO SCH (09:34)
[2018-11-20] MEDS: FUROSEMIDE 20 MG TABLET PO SCH (09:34)
[2018-11-20] MEDS: MULTIVITAMINS WITH MINERALS, THERAPEUTIC TABLET PO SCH (09:34)
[2018-11-20] MEDS: APIXABAN 5 MG TABLET PO SCH (09:34)
[2018-11-20] MEDS: BACITRACIN 28.4 GM OINTMENT TP SCH (10:00)
[2018-11-20] MEDS ORDERED: QUET100T33 PO (14:05)
[2018-11-20] MEDS ORDERED: QUET200T29 PO (14:05)
[2018-11-20] MEDS ORDERED: FURO20 PO (14:47)
[2018-11-20] MEDS ORDERED: APIX5TAB PO (14:47)
[2018-11-20] MEDS ORDERED: MULT-1239 PO (14:47)
[2018-11-20] MEDS ORDERED: BACI30OI6 TP (14:47)
== END 2018-11-20 16:00 | disposition home or self-care (01) | DRG 750 ==
LOC: EMS 10:25 → B2X 16:03 → UNDOADMIN 16:03 → 3EI 10-29 18:06 → B2X 10-29 18:06
PROVIDERS: ADMIT Psychiatry & Neurology Child & Adolescent Psychiatry; ATTEND Psychiatry & Neurology Child & Adolescent Psychiatry
DX: F25.0 Schizoaffective disorder, bipolar type (principal); D61.818 Other pancytopenia; L03.116 Cellulitis of left lower limb; I82.512 Chronic embolism and thrombosis of left femoral vein; I82.532 Chronic embolism and thrombosis of left popliteal vein; F79 Unspecified intellectual disabilities; I10 Essential (primary) hypertension; F41.9 Anxiety disorder, unspecified; F10.10 Alcohol abuse, uncomplicated; F19.10 Other psychoactive substance abuse, uncomplicated; Z79.899 Other long term (current) drug therapy; Z59.0 Homelessness
CPT/HCPCS: 83036; 84443; 93971

== ENCOUNTER 2019-06-03 07:46 | Inpatient (IN) | payer MEDICAID ==
[~2019-06-03] VITALS: Ht 185.4 cm; Wt 135.2 kg
[~2019-06-03 07:46] MED LIST changes: +APIX5TAB PO; +BACI30OI6 TP; +FURO20 PO; -HALOPERIDOL 5 MG TABLET PO PRN; +MULT-1239 PO; -NALT50TA6 PO; +QUET100T33 PO; -QUET200T PO; -RIVA20TA PO; -WARF1 PO; -ZOLPIDEM TARTRATE 10 MG TABLET PO PRN
[2019-06-03 09:40] VITALS: BP 129/84
[2019-06-03] MEDS ORDERED: HALOPERIDOL 5 MG TABLET PO PRN (10:45)
[2019-06-03] MEDS ORDERED: FURO20TA4 PO (11:42)
[2019-06-03] MEDS ORDERED: POTA8TAB4 PO (11:43)
[2019-06-03 16:13] VITALS: BP 128/75
[2019-06-03] MEDS: APIXABAN 5 MG TABLET PO SCH (16:29)
[2019-06-03] MEDS: ZOLPIDEM TARTRATE 10 MG TABLET PO PRN (20:38)
[2019-06-04 05:33] VITALS: BP 133/83
[2019-06-04] MEDS: LORazepam 2 MG TABLET PO PRN ×2 (07:19→16:14)
[2019-06-04 07:59] LABS: BASOPHILS % (AUTO) 0.7 % (0.0-2.0); EOSINOPHILS % (AUTO) 4.3 % (1.0-6.0); HEMATOCRIT 38.7 % (41-53); HEMOGLOBIN 13.3 g/dL (13.5-17.5); LYMPHOCYTES # (AUTO) 0.9 K/uL (1.0-4.8); LYMPHOCYTES % (AUTO) 18.9 % (22.0-44.0); MEAN CORPUSCULAR HEMOGLOBIN 32.5 pg (26.0-34.0); MEAN CORPUSCULAR HGB CONC 34.4 G/dL (31.0-37.0); MEAN CORPUSCULAR VOLUME 94 fL (80-100); MONOCYTES # (AUTO) 0.5 K/uL (0.1-1.0); MONOCYTES % (AUTO) 11.6 % (2.0-9.0); NEUTROPHILS # (AUTO) 2.9 K/uL (1.8-7.7); NEUTROPHILS % (AUTO) 64.5 % (40.0-70.0); PLATELET COUNT (AUTO) 153 K/uL (150-450)
[2019-06-04 08:24] LABS: ALANINE AMINOTRANSFERASE 57 U/L (12-78); ALBUMIN 3.2 g/dL (3.4-5.0); ALKALINE PHOSPHATASE 45 U/L (46-116); ANION GAP 9 mmol/L (8-16); ASPARTATE AMINOTRANSFERASE 81 U/L (15-37); BILIRUBIN,TOTAL 1.5 mg/dL (0.1-1.0); CALCIUM, TOTAL 8.7 mg/dL (8.8-10.5); CARBON DIOXIDE 28 mmol/L (22-29); CHLORIDE 105 mmol/L (98-107); CHOL/HDL RATIO 1.9 (4.2-7.3); CHOLESTEROL 115 mg/dL (131-200); CREATININE 0.85 mg/dL (0.60-1.30); GLOMERULAR FILTR. RATE CALC > 60 mL/min (>60); GLUCOSE,RANDOM 118 mg/dL (70-110); HDL CHOLESTEROL 62 mg/dL (40-60); LDL CHOL (CALC.) 43 mg/dL (0-130); POTASSIUM 3.4 mmol/L (3.5-5.1); SODIUM SERUM 142 mmol/L (136-145); TOTAL PROTEIN, SERUM 7.3 g/dL (6.4-8.2); TRIGLYCERIDES 51 mg/dL (15-150); UREA NITROGEN, BLOOD 14 mg/dL (7-18)
[2019-06-04] MEDS: MULTIVITAMINS WITH MINERALS, THERAPEUTIC TABLET PO SCH (08:27)
[2019-06-04] MEDS: POTASSIUM CHLORIDE 8 MEQ ER TABLET PO SCH (08:27)
[2019-06-04] MEDS: FUROSEMIDE 20 MG TABLET PO SCH (08:27)
[2019-06-04] MEDS: AmLODIPine BESYLATE 10 MG TABLET PO SCH (08:27)
[2019-06-04] MEDS: APIXABAN 5 MG TABLET PO SCH ×2 (08:27→16:14)
[2019-06-04 08:28] VITALS: BP 117/78
[2019-06-04 08:41] LABS: HEMOGLOBIN A1C 5.5 % (4.5-6.2)
[2019-06-04] MEDS: OLANZapine 5 MG TABLET PO SCH ×2 (10:56→16:14)
[2019-06-04] MEDS: FLUoxetine HCL 20 MG CAPSULE PO SCH (10:56)
[2019-06-04 16:14] VITALS: BP 139/62
[2019-06-05 00:20] VITALS: BP 134/84
[2019-06-05 08:00] VITALS: BP 137/88
[2019-06-05] MEDS: AmLODIPine BESYLATE 10 MG TABLET PO SCH (08:19)
[2019-06-05] MEDS: FLUoxetine HCL 20 MG CAPSULE PO SCH (08:19)
[2019-06-05] MEDS: MULTIVITAMINS WITH MINERALS, THERAPEUTIC TABLET PO SCH (08:19)
[2019-06-05] MEDS: FUROSEMIDE 20 MG TABLET PO SCH (08:19)
[2019-06-05] MEDS: OLANZapine 5 MG TABLET PO SCH ×2 (08:19→17:01)
[2019-06-05] MEDS: APIXABAN 5 MG TABLET PO SCH ×2 (08:20→17:01)
[2019-06-05] MEDS: POTASSIUM CHLORIDE 8 MEQ ER TABLET PO SCH (08:20)
[2019-06-05] MEDS: HYDROCHLOROTHIAZIDE 25 MG TABLET PO SCH (08:20)
[2019-06-05 16:11] VITALS: BP 139/80
[2019-06-05] MEDS: LORazepam 2 MG TABLET PO PRN (17:01)
[2019-06-06 08:09] VITALS: BP 129/75
[2019-06-06] MEDS: AmLODIPine BESYLATE 10 MG TABLET PO SCH (09:54)
[2019-06-06] MEDS: FUROSEMIDE 20 MG TABLET PO SCH (09:55)
[2019-06-06] MEDS: OLANZapine 5 MG TABLET PO SCH ×2 (09:55→16:19)
[2019-06-06] MEDS: MULTIVITAMINS WITH MINERALS, THERAPEUTIC TABLET PO SCH (09:55)
[2019-06-06] MEDS: FLUoxetine HCL 20 MG CAPSULE PO SCH (09:55)
[2019-06-06] MEDS: HYDROCHLOROTHIAZIDE 25 MG TABLET PO SCH (09:55)
[2019-06-06] MEDS: POTASSIUM CHLORIDE 8 MEQ ER TABLET PO SCH (09:56)
[2019-06-06] MEDS: APIXABAN 5 MG TABLET PO SCH ×2 (09:57→16:19)
[2019-06-06 16:06] VITALS: BP 109/68
[2019-06-06] MEDS: LORazepam 2 MG TABLET PO PRN (16:19)
[2019-06-07 06:54] VITALS: BP 127/83
[2019-06-07 08:12] VITALS: BP 140/82
[2019-06-07] MEDS: FLUoxetine HCL 20 MG CAPSULE PO SCH (08:35)
[2019-06-07] MEDS: FUROSEMIDE 20 MG TABLET PO SCH (08:35)
[2019-06-07] MEDS: OLANZapine 5 MG TABLET PO SCH ×2 (08:35→16:55)
[2019-06-07] MEDS: AmLODIPine BESYLATE 10 MG TABLET PO SCH (08:38)
[2019-06-07] MEDS: MULTIVITAMINS WITH MINERALS, THERAPEUTIC TABLET PO SCH (08:39)
[2019-06-07] MEDS: POTASSIUM CHLORIDE 8 MEQ ER TABLET PO SCH (08:39)
[2019-06-07] MEDS: APIXABAN 5 MG TABLET PO SCH ×2 (08:39→16:55)
[2019-06-07] MEDS: HYDROCHLOROTHIAZIDE 25 MG TABLET PO SCH (08:41)
[2019-06-07] MEDS: MINERAL OIL/PETROLATUM 120 GM CREAM TP PRN (13:11)
[2019-06-07 16:06] VITALS: BP 121/80
[2019-06-07] MEDS: LORazepam 2 MG TABLET PO PRN (16:55)
[2019-06-07] MEDS: ZOLPIDEM TARTRATE 10 MG TABLET PO PRN (20:37)
[2019-06-08 07:04] VITALS: BP 127/82
[2019-06-08 08:21] VITALS: BP 146/83
[2019-06-08] MEDS: FLUoxetine HCL 20 MG CAPSULE PO SCH (08:44)
[2019-06-08] MEDS: MULTIVITAMINS WITH MINERALS, THERAPEUTIC TABLET PO SCH (08:44)
[2019-06-08] MEDS: OLANZapine 5 MG TABLET PO SCH ×2 (08:44→17:31)
[2019-06-08] MEDS: FUROSEMIDE 20 MG TABLET PO SCH (08:44)
[2019-06-08] MEDS: HYDROCHLOROTHIAZIDE 25 MG TABLET PO SCH (08:44)
[2019-06-08] MEDS: AmLODIPine BESYLATE 10 MG TABLET PO SCH (08:45)
[2019-06-08] MEDS: POTASSIUM CHLORIDE 8 MEQ ER TABLET PO SCH (08:48)
[2019-06-08] MEDS: APIXABAN 5 MG TABLET PO SCH ×2 (08:49→17:30)
[2019-06-08] MEDS: MINERAL OIL/PETROLATUM 120 GM CREAM TP PRN (09:48)
[2019-06-08 16:08] VITALS: BP 120/78
[2019-06-09 01:49] VITALS: BP 125/78
[2019-06-09 08:09] VITALS: BP 120/84
[2019-06-09] MEDS: FUROSEMIDE 20 MG TABLET PO SCH (08:19)
[2019-06-09] MEDS: AmLODIPine BESYLATE 10 MG TABLET PO SCH (08:19)
[2019-06-09] MEDS: FLUoxetine HCL 20 MG CAPSULE PO SCH (08:19)
[2019-06-09] MEDS: OLANZapine 5 MG TABLET PO SCH ×2 (08:19→16:33)
[2019-06-09] MEDS: HYDROCHLOROTHIAZIDE 25 MG TABLET PO SCH (08:19)
[2019-06-09] MEDS: APIXABAN 5 MG TABLET PO SCH ×2 (08:19→16:33)
[2019-06-09] MEDS: POTASSIUM CHLORIDE 8 MEQ ER TABLET PO SCH (08:19)
[2019-06-09] MEDS: MULTIVITAMINS WITH MINERALS, THERAPEUTIC TABLET PO SCH (08:19)
[2019-06-09 16:11] VITALS: BP 139/80
[2019-06-09] MEDS: LORazepam 2 MG TABLET PO PRN (16:33)
[2019-06-10 05:56] VITALS: BP 147/92
[2019-06-10 08:39] VITALS: BP 143/86
[2019-06-10] MEDS: APIXABAN 5 MG TABLET PO SCH ×2 (08:55→16:33)
[2019-06-10] MEDS: MULTIVITAMINS WITH MINERALS, THERAPEUTIC TABLET PO SCH (08:55)
[2019-06-10] MEDS: OLANZapine 5 MG TABLET PO SCH ×2 (08:55→16:33)
[2019-06-10] MEDS: HYDROCHLOROTHIAZIDE 25 MG TABLET PO SCH (08:56)
[2019-06-10] MEDS: POTASSIUM CHLORIDE 8 MEQ ER TABLET PO SCH (08:56)
[2019-06-10] MEDS: AmLODIPine BESYLATE 10 MG TABLET PO SCH (08:57)
[2019-06-10] MEDS: FUROSEMIDE 20 MG TABLET PO SCH (08:57)
[2019-06-10] MEDS: FLUoxetine HCL 20 MG CAPSULE PO SCH (08:57)
[2019-06-10] MEDS: LORazepam 2 MG TABLET PO PRN (16:33)
[2019-06-10 17:00] VITALS: BP 139/76
[2019-06-11 06:10] VITALS: BP 132/81
[2019-06-11] MEDS: AmLODIPine BESYLATE 10 MG TABLET PO SCH (08:29)
[2019-06-11] MEDS: POTASSIUM CHLORIDE 8 MEQ ER TABLET PO SCH (08:29)
[2019-06-11] MEDS: FLUoxetine HCL 20 MG CAPSULE PO SCH (08:29)
[2019-06-11] MEDS: FUROSEMIDE 20 MG TABLET PO SCH (08:29)
[2019-06-11] MEDS: APIXABAN 5 MG TABLET PO SCH ×2 (08:30→16:49)
[2019-06-11] MEDS: OLANZapine 5 MG TABLET PO SCH ×2 (08:30→16:49)
[2019-06-11] MEDS: MULTIVITAMINS WITH MINERALS, THERAPEUTIC TABLET PO SCH (08:30)
[2019-06-11] MEDS: HYDROCHLOROTHIAZIDE 25 MG TABLET PO SCH (08:30)
[2019-06-11 08:45] VITALS: BP 113/66
[2019-06-11 16:00] VITALS: BP 136/83
[2019-06-12 02:00] VITALS: BP 133/80
[2019-06-12 08:27] VITALS: BP 115/70
[2019-06-12] MEDS: APIXABAN 5 MG TABLET PO SCH ×2 (08:53→17:27)
[2019-06-12] MEDS: FUROSEMIDE 20 MG TABLET PO SCH (08:53)
[2019-06-12] MEDS: AmLODIPine BESYLATE 10 MG TABLET PO SCH (08:53)
[2019-06-12] MEDS: POTASSIUM CHLORIDE 8 MEQ ER TABLET PO SCH (08:54)
[2019-06-12] MEDS: HYDROCHLOROTHIAZIDE 25 MG TABLET PO SCH (08:54)
[2019-06-12] MEDS: OLANZapine 5 MG TABLET PO SCH ×2 (08:54→17:27)
[2019-06-12] MEDS: FLUoxetine HCL 20 MG CAPSULE PO SCH (08:54)
[2019-06-12] MEDS: MULTIVITAMINS WITH MINERALS, THERAPEUTIC TABLET PO SCH (08:54)
[2019-06-12 16:05] VITALS: BP 140/87
[2019-06-13 06:21] VITALS: BP 118/74
[2019-06-13 08:13] VITALS: BP 105/70
[2019-06-13] MEDS: POTASSIUM CHLORIDE 8 MEQ ER TABLET PO SCH (08:31)
[2019-06-13] MEDS: OLANZapine 5 MG TABLET PO SCH ×2 (08:31→16:19)
[2019-06-13] MEDS: FUROSEMIDE 20 MG TABLET PO SCH (08:31)
[2019-06-13] MEDS: HYDROCHLOROTHIAZIDE 25 MG TABLET PO SCH (08:31)
[2019-06-13] MEDS: MULTIVITAMINS WITH MINERALS, THERAPEUTIC TABLET PO SCH (08:31)
[2019-06-13] MEDS: APIXABAN 5 MG TABLET PO SCH ×2 (08:31→16:19)
[2019-06-13] MEDS: AmLODIPine BESYLATE 10 MG TABLET PO SCH (08:31)
[2019-06-13] MEDS: FLUoxetine HCL 20 MG CAPSULE PO SCH (08:31)
[2019-06-13 16:43] VITALS: BP 140/88
[2019-06-14 05:06] VITALS: BP 125/81
[2019-06-14 08:18] VITALS: BP 107/68
[2019-06-14] MEDS: APIXABAN 5 MG TABLET PO SCH ×2 (10:41→17:41)
[2019-06-14] MEDS: FUROSEMIDE 20 MG TABLET PO SCH (10:41)
[2019-06-14] MEDS: POTASSIUM CHLORIDE 8 MEQ ER TABLET PO SCH (10:42)
[2019-06-14] MEDS: FLUoxetine HCL 20 MG CAPSULE PO SCH (10:42)
[2019-06-14] MEDS: MULTIVITAMINS WITH MINERALS, THERAPEUTIC TABLET PO SCH (10:42)
[2019-06-14] MEDS: OLANZapine 5 MG TABLET PO SCH ×2 (10:43→17:41)
[2019-06-14] MEDS: AmLODIPine BESYLATE 10 MG TABLET PO SCH (10:44)
[2019-06-14] MEDS: HYDROCHLOROTHIAZIDE 25 MG TABLET PO SCH (10:44)
[2019-06-14 16:11] VITALS: BP 119/60
[2019-06-15 05:31] VITALS: BP 119/72
[2019-06-15 08:17] VITALS: BP 144/74
[2019-06-15] MEDS: AmLODIPine BESYLATE 10 MG TABLET PO SCH (08:55)
[2019-06-15] MEDS: HYDROCHLOROTHIAZIDE 25 MG TABLET PO SCH (08:57)
[2019-06-15] MEDS: FLUoxetine HCL 20 MG CAPSULE PO SCH (08:58)
[2019-06-15] MEDS: FUROSEMIDE 20 MG TABLET PO SCH (08:58)
[2019-06-15] MEDS: OLANZapine 5 MG TABLET PO SCH ×2 (08:59→16:31)
[2019-06-15] MEDS: MULTIVITAMINS WITH MINERALS, THERAPEUTIC TABLET PO SCH (09:00)
[2019-06-15] MEDS: POTASSIUM CHLORIDE 8 MEQ ER TABLET PO SCH (09:00)
[2019-06-15] MEDS: APIXABAN 5 MG TABLET PO SCH ×2 (09:01→16:31)
[2019-06-15 17:00] VITALS: BP 115/73
[2019-06-15] MEDS ORDERED: BACITRACIN 28.4 GM OINTMENT TP PRN (21:00)
[2019-06-16 01:45] VITALS: BP 119/74
[2019-06-16 08:13] VITALS: BP 134/80
[2019-06-16] MEDS: MULTIVITAMINS WITH MINERALS, THERAPEUTIC TABLET PO SCH (09:02)
[2019-06-16] MEDS: AmLODIPine BESYLATE 10 MG TABLET PO SCH (09:02)
[2019-06-16] MEDS: FUROSEMIDE 20 MG TABLET PO SCH (09:03)
[2019-06-16] MEDS: HYDROCHLOROTHIAZIDE 25 MG TABLET PO SCH (09:03)
[2019-06-16] MEDS: OLANZapine 5 MG TABLET PO SCH ×2 (09:04→17:10)
[2019-06-16] MEDS: POTASSIUM CHLORIDE 8 MEQ ER TABLET PO SCH (09:04)
[2019-06-16] MEDS: FLUoxetine HCL 20 MG CAPSULE PO SCH (09:04)
[2019-06-16] MEDS: APIXABAN 5 MG TABLET PO SCH ×2 (09:05→17:10)
[2019-06-16 16:06] VITALS: BP 137/79
[2019-06-17] MEDS ORDERED: APIXABAN 5 MG TABLET PO SCH
[2019-06-17 04:57] VITALS: BP 131/81
[2019-06-17] MEDS: POTASSIUM CHLORIDE 8 MEQ ER TABLET PO SCH (08:15)
[2019-06-17] MEDS: APIXABAN 5 MG TABLET PO SCH ×2 (08:15→16:37)
[2019-06-17] MEDS: FLUoxetine HCL 20 MG CAPSULE PO SCH (08:15)
[2019-06-17] MEDS: AmLODIPine BESYLATE 10 MG TABLET PO SCH (08:15)
[2019-06-17] MEDS: MULTIVITAMINS WITH MINERALS, THERAPEUTIC TABLET PO SCH (08:15)
[2019-06-17] MEDS: HYDROCHLOROTHIAZIDE 25 MG TABLET PO SCH (08:15)
[2019-06-17] MEDS: FUROSEMIDE 20 MG TABLET PO SCH (08:15)
[2019-06-17] MEDS: OLANZapine 5 MG TABLET PO SCH ×2 (08:15→16:37)
[2019-06-17 08:18] VITALS: BP 123/73
[2019-06-17 18:02] VITALS: BP 120/64
[2019-06-18 07:08] VITALS: BP 140/87
[2019-06-18] MEDS: FLUoxetine HCL 20 MG CAPSULE PO SCH (08:13)
[2019-06-18] MEDS: AmLODIPine BESYLATE 10 MG TABLET PO SCH (08:13)
[2019-06-18] MEDS: POTASSIUM CHLORIDE 8 MEQ ER TABLET PO SCH (08:14)
[2019-06-18] MEDS: FUROSEMIDE 20 MG TABLET PO SCH (08:14)
[2019-06-18] MEDS: OLANZapine 5 MG TABLET PO SCH ×2 (08:14→16:27)
[2019-06-18] MEDS: APIXABAN 5 MG TABLET PO SCH ×2 (08:14→16:27)
[2019-06-18] MEDS: HYDROCHLOROTHIAZIDE 25 MG TABLET PO SCH (08:14)
[2019-06-18] MEDS: MULTIVITAMINS WITH MINERALS, THERAPEUTIC TABLET PO SCH (08:14)
[2019-06-18 08:24] VITALS: BP 113/73
[2019-06-18 16:18] VITALS: BP 145/77
[2019-06-18] MEDS: LORazepam 2 MG TABLET PO PRN (16:27)
[2019-06-19 04:49] VITALS: BP 117/84
[2019-06-19 08:28] VITALS: BP 126/78
[2019-06-19] MEDS: OLANZapine 5 MG TABLET PO SCH ×2 (08:42→16:30)
[2019-06-19] MEDS: APIXABAN 5 MG TABLET PO SCH ×2 (08:42→16:30)
[2019-06-19] MEDS: FUROSEMIDE 20 MG TABLET PO SCH (08:43)
[2019-06-19] MEDS: AmLODIPine BESYLATE 10 MG TABLET PO SCH (08:43)
[2019-06-19] MEDS: HYDROCHLOROTHIAZIDE 25 MG TABLET PO SCH (08:43)
[2019-06-19] MEDS: FLUoxetine HCL 20 MG CAPSULE PO SCH (08:43)
[2019-06-19] MEDS: MULTIVITAMINS WITH MINERALS, THERAPEUTIC TABLET PO SCH (08:43)
[2019-06-19] MEDS: POTASSIUM CHLORIDE 8 MEQ ER TABLET PO SCH (08:43)
[2019-06-19 16:05] VITALS: BP 126/72
[2019-06-20 04:27] VITALS: BP 122/69
[2019-06-20] MEDS: FLUoxetine HCL 20 MG CAPSULE PO SCH (08:18)
[2019-06-20] MEDS: POTASSIUM CHLORIDE 8 MEQ ER TABLET PO SCH (08:18)
[2019-06-20] MEDS: HYDROCHLOROTHIAZIDE 25 MG TABLET PO SCH (08:18)
[2019-06-20] MEDS: FUROSEMIDE 20 MG TABLET PO SCH (08:18)
[2019-06-20] MEDS: AmLODIPine BESYLATE 10 MG TABLET PO SCH (08:18)
[2019-06-20] MEDS: MULTIVITAMINS WITH MINERALS, THERAPEUTIC TABLET PO SCH (08:18)
[2019-06-20] MEDS: APIXABAN 5 MG TABLET PO SCH ×2 (08:18→16:51)
[2019-06-20] MEDS: OLANZapine 5 MG TABLET PO SCH ×2 (08:18→16:51)
[2019-06-20 08:37] VITALS: BP 125/76
[2019-06-20 16:00] VITALS: BP 133/75
[2019-06-21 03:47] VITALS: BP 126/81
[2019-06-21 08:00] VITALS: BP 116/57
[2019-06-21] MEDS: OLANZapine 5 MG TABLET PO SCH ×2 (09:27→16:55)
[2019-06-21] MEDS: POTASSIUM CHLORIDE 8 MEQ ER TABLET PO SCH (09:28)
[2019-06-21] MEDS: FLUoxetine HCL 20 MG CAPSULE PO SCH (09:28)
[2019-06-21] MEDS: MULTIVITAMINS WITH MINERALS, THERAPEUTIC TABLET PO SCH (09:28)
[2019-06-21] MEDS: AmLODIPine BESYLATE 10 MG TABLET PO SCH (09:28)
[2019-06-21] MEDS: HYDROCHLOROTHIAZIDE 25 MG TABLET PO SCH (09:28)
[2019-06-21] MEDS: FUROSEMIDE 20 MG TABLET PO SCH (09:28)
[2019-06-21] MEDS: APIXABAN 5 MG TABLET PO SCH ×2 (09:29→16:55)
[2019-06-21] MEDS: MINERAL OIL/PETROLATUM 120 GM CREAM TP PRN (10:01)
[2019-06-21 16:05] VITALS: BP 127/72
[2019-06-22 04:58] VITALS: BP 115/72
[2019-06-22 08:00] VITALS: BP 122/81
[2019-06-22] MEDS: OLANZapine 5 MG TABLET PO SCH ×2 (09:06→17:22)
[2019-06-22] MEDS: MULTIVITAMINS WITH MINERALS, THERAPEUTIC TABLET PO SCH (09:06)
[2019-06-22] MEDS: HYDROCHLOROTHIAZIDE 25 MG TABLET PO SCH (09:06)
[2019-06-22] MEDS: FLUoxetine HCL 20 MG CAPSULE PO SCH (09:07)
[2019-06-22] MEDS: AmLODIPine BESYLATE 10 MG TABLET PO SCH (09:07)
[2019-06-22] MEDS: FUROSEMIDE 20 MG TABLET PO SCH (09:07)
[2019-06-22] MEDS: POTASSIUM CHLORIDE 8 MEQ ER TABLET PO SCH (09:50)
[2019-06-22] MEDS: APIXABAN 5 MG TABLET PO SCH ×2 (09:50→17:22)
[2019-06-22 16:04] VITALS: BP 112/72
[2019-06-23 05:13] VITALS: BP 124/67
[2019-06-23] MEDS: OLANZapine 5 MG TABLET PO SCH ×2 (08:40→16:27)
[2019-06-23] MEDS: MULTIVITAMINS WITH MINERALS, THERAPEUTIC TABLET PO SCH (08:40)
[2019-06-23] MEDS: POTASSIUM CHLORIDE 8 MEQ ER TABLET PO SCH (08:40)
[2019-06-23] MEDS: AmLODIPine BESYLATE 10 MG TABLET PO SCH (08:40)
[2019-06-23] MEDS: APIXABAN 5 MG TABLET PO SCH ×2 (08:40→16:27)
[2019-06-23] MEDS: HYDROCHLOROTHIAZIDE 25 MG TABLET PO SCH (08:40)
[2019-06-23] MEDS: FLUoxetine HCL 20 MG CAPSULE PO SCH (08:40)
[2019-06-23] MEDS: FUROSEMIDE 20 MG TABLET PO SCH (08:41)
[2019-06-23 12:27] VITALS: BP 120/68
[2019-06-23 16:07] VITALS: BP 130/75
[2019-06-24 04:39] VITALS: BP 149/90
[2019-06-24 08:27] VITALS: BP 140/80
[2019-06-24] MEDS: FLUoxetine HCL 20 MG CAPSULE PO SCH (08:50)
[2019-06-24] MEDS: AmLODIPine BESYLATE 10 MG TABLET PO SCH (08:51)
[2019-06-24] MEDS: MULTIVITAMINS WITH MINERALS, THERAPEUTIC TABLET PO SCH (08:52)
[2019-06-24] MEDS: HYDROCHLOROTHIAZIDE 25 MG TABLET PO SCH (08:52)
[2019-06-24] MEDS: FUROSEMIDE 20 MG TABLET PO SCH (08:52)
[2019-06-24] MEDS: POTASSIUM CHLORIDE 8 MEQ ER TABLET PO SCH (08:52)
[2019-06-24] MEDS: OLANZapine 5 MG TABLET PO SCH (08:52)
[2019-06-24] MEDS: APIXABAN 5 MG TABLET PO SCH (08:53)
[2019-06-24 10:32] LABS: PROTHROMBIN TIME 10.5 SEC (9.4-11.6)
[2019-06-24] MEDS ORDERED: FLUO20CA30 PO (14:29)
[2019-06-24] MEDS ORDERED: OLAN5TAB27 PO (14:29)
== END 2019-06-24 18:19 | disposition home or self-care (01) | DRG 750 ==
LOC: B3A 10:47
PROVIDERS: ADMIT Psychiatry & Neurology Psychiatry; ATTEND Psychiatry & Neurology Psychiatry
DX: F25.9 Schizoaffective disorder, unspecified (principal); I82.402 Acute embolism and thrombosis of unspecified deep veins of left lower extremity; F70 Mild intellectual disabilities; R45.851 Suicidal ideations; Z59.0 Homelessness; D64.9 Anemia, unspecified; F32.9 Major depressive disorder, single episode, unspecified; G47.00 Insomnia, unspecified; I10 Essential (primary) hypertension; Z79.01 Long term (current) use of anticoagulants; Z82.49 Family history of ischemic heart disease and other diseases of the circulatory system; Z82.3 Family history of stroke
CPT/HCPCS: 83036

== ENCOUNTER 2019-11-21 07:14 | Emergency (ER) | payer MEDICAID, OTHER ==
[~2019-11-21] VITALS: Ht 175.3 cm; Wt 136.0 kg
[~2019-11-21 07:14] MED LIST changes: -AMLO10TA7 PO; -BACI30OI6 TP; +FLUO20CA30 PO; -FURO20 PO; +FURO20TA4 PO; +OLAN5TAB27 PO; +POTA8TAB4 PO; -QUET100T33 PO; -QUET200T29 PO
[2019-11-21 09:52] LABS: BASOPHILS % (AUTO) 0.7 % (0.0-2.0); EOSINOPHILS % (AUTO) 6.6 % (1.0-6.0); HEMATOCRIT 39.8 % (41-53); HEMOGLOBIN 13.5 g/dL (13.5-17.5); LYMPHOCYTES # (AUTO) 0.8 K/uL (1.0-4.8); LYMPHOCYTES % (AUTO) 21.6 % (22.0-44.0); MEAN CORPUSCULAR HEMOGLOBIN 32.3 pg (26.0-34.0); MEAN CORPUSCULAR HGB CONC 33.9 G/dL (31.0-37.0); MEAN CORPUSCULAR VOLUME 95 fL (80-100); MONOCYTES # (AUTO) 0.6 K/uL (0.1-1.0); MONOCYTES % (AUTO) 14.7 % (2.0-9.0); NEUTROPHILS # (AUTO) 2.2 K/uL (1.8-7.7); NEUTROPHILS % (AUTO) 56.4 % (40.0-70.0); PLATELET COUNT (AUTO) 135 K/uL (150-450); RED BLOOD CELL COUNT(AUTO) 4.18 MIL/uL (4.50-5.90)
[2019-11-21 10:04] LABS: PROTHROMBIN TIME 10.4 SEC (9.4-11.6)
[2019-11-21 10:06] LABS: ANION GAP 11 mmol/L (8-16); CALCIUM, TOTAL 8.5 mg/dL (8.8-10.5); CARBON DIOXIDE 27 mmol/L (22-29); CHLORIDE 103 mmol/L (98-107); CREATININE 0.91 mg/dL (0.60-1.30); GLOMERULAR FILTR. RATE CALC > 60 mL/min (>60); GLUCOSE,RANDOM 118 mg/dL (70-110); POTASSIUM 3.7 mmol/L (3.5-5.1); SODIUM SERUM 141 mmol/L (136-145); UREA NITROGEN, BLOOD 6 mg/dL (7-18)
[2019-11-21 10:12] LABS: ALANINE AMINOTRANSFERASE 64 U/L (12-78); ALBUMIN 3.3 g/dL (3.4-5.0); ALKALINE PHOSPHATASE 54 U/L (46-116); ASPARTATE AMINOTRANSFERASE 97 U/L (15-37); BILIRUBIN,TOTAL 0.7 mg/dL (0.1-1.0); TOTAL PROTEIN, SERUM 8.7 g/dL (6.4-8.2)
[2019-11-21 18:06] VITALS: BP 135/73
== END 2019-11-21 18:12 | disposition home or self-care (01) ==
LOC: EMS 07:17
DX: I82.502 Chronic embolism and thrombosis of unspecified deep veins of left lower extremity (principal); F10.129 Alcohol abuse with intoxication, unspecified; F25.9 Schizoaffective disorder, unspecified; F31.9 Bipolar disorder, unspecified; I10 Essential (primary) hypertension; F12.90 Cannabis use, unspecified, uncomplicated; Y90.6 Blood alcohol level of 120-199 mg/100 ml
CPT/HCPCS: 36415; 71045; 80053; 83880; 84484; 85025; 85610; 85730; 93005; 93970; 99285; G0480